=== PATIENT | female | born 1955 | race Caucasian/White ===

== ENCOUNTER → 2020-04-17 09:04 | Outpatient (BNVA) | payer MEDICARE, OTHER, SELFPAY | PROVIDERS: Referring Provider Internal Medicine Hematology & Oncology; Visit Provider Licensed Practical Nurse | DX: G35 Multiple sclerosis (principal); R19.7 Diarrhea, unspecified; E55.9 Vitamin D deficiency, unspecified ==

== ENCOUNTER 2020-04-17 11:08 | Outpatient (CLI) | payer MEDICARE, OTHER, SELFPAY ==
[2020-04-17 11:46] LABS: Basophils % 0.6 %; Eosinophils # 0.1 10^3/uL (0.0-0.8); Eosinophils % 2.1 %; Hematocrit 40.1 % (37.0-47.0); Hemoglobin 12.6 g/dL (11.5-15.3); Lymphocytes # 2.4 10^3/uL (0.8-4.8); Lymphocytes % 35.3 %; Mean Corpuscular HGB Conc 31.4 g/dL (30.0-36.0); Mean Corpuscular Hemoglobin 27.6 pg (28.0-34.0); Mean Corpuscular Volume 87.9 fL (81-99); Mean Platelet Volume 10.5 fL (7.4-10.4); Monocytes # 0.5 10^3/uL (0.2-0.9); Monocytes % 7.7 %; Neutrophils # 3.66 10^3/uL (1.8-7.7); Nucleated Red Blood Cells % 0 %; Platelet Count 308 10^3/cmm (130-400); Red Blood Count 4.56 10^6/uL (4.1-5.3); Red Cell Distribution Width 13.3 % (12.1-15.1); White Blood Count 6.8 10^3/uL (4.0-10.0)
[2020-04-17 12:09] LABS: Alanine Aminotransferase 29 U/L (0-33); Albumin Level 4.4 g/dL (3.5-5.2); Alkaline Phosphatase 122 IU/L (35-105); Anion Gap 15.6 (5-19); Aspartate Amino Transferase 29 U/L (0-32); Blood Urea Nitrogen 11 mg/dL (8-23); Calcium 9.7 mg/dL (8.5-10.5); Carbon Dioxide 24 mmol/L (22-29); Chloride 104 mmol/L (98-107); Globulin 3.4 g/dL (1.3-4.6); Glomerular Filtration Rate 83.7 mL/min (90-130); Glucose 90 mg/dL (65-115); Osmolality Calculated 286 mOsm/kg (285-295); Potassium 3.6 mmol/L (3.5-5.1); Sodium 140 mmol/L (136-145); Total Bilirubin 0.3 mg/dL (0.15-1.2); Total Protein 7.8 g/dL (6.6-8.7)
[2020-04-17 12:46] LABS: Erythrocyte Sedimentation Rate 34 mm/hr (0-15)
[2020-04-17 13:04] LABS: C Reactive Protein 10.3 mg/L (0.0-4.9)
[2020-04-17 13:20] LABS: Vitamin B12 312 pg/mL (232-1245)
[2020-04-19 14:31] LABS: Anti-Nuclear Antibody Screen NEGATIVE (NEGATIVE)
== END 2020-04-17 11:09 | disposition home or self-care (01) ==
LOC: LAB 11:14
PROVIDERS: PCP Licensed Practical Nurse; Visit Provider Licensed Practical Nurse
DX: G35 Multiple sclerosis (principal)
CPT/HCPCS: 80053; 82607; 83516; 85025; 85651; 86038; 86140; 86431; 99204

== ENCOUNTER 2020-05-01 12:17 | Outpatient (CLI) | payer MEDICARE, OTHER, SELFPAY ==
--- NOTE | 2020-05-01 13:00 | MR_ITS ---
WS: [id number] MRI HEAD WITH CONTRAST TECHNIQUE: Sagittal T1, T2 axial, T2 axial FLAIR, axial susceptibility weighted imaging, axial diffus ion weighted images, and coronal T2 images were obtained. Pre and post-T1 axial and post T1 coronal i mages. ADC and FSPGR images. CLINICAL INFORMATION: Multiple Sclerosis COMPARISON: March 30, 2020, FINDINGS: No evidence of restricted diffusion to suggest acute ischemia. Advanced patchy supra and infratentori al white matter changes unchanged since the recent examination. Corpus callosum appears normal. No si gnificant atrophy of the corpus callosum. No significant T1 hypointense lesion load. No abnormal gado linium enhancement. No abnormal enhancing lesions. Mild parenchymal volume loss. No hemosiderin on alvarado sceptibly weighted images. No abnormal gadolinium enhancement. Normal optic chiasm and pituitary infundibulum. Normal dural veno us sinuses. Normal optic chiasm and pituitary infundibulum. Cavernous sinuses and Meckel's cave are n ormal in appearance. MR/MR head wo/w con [id number] IMPRESSION: 1. No evidence of restricted diffusion to suggest acute ischemia. 2. Advanced supra and infratentorial white matter changes mainly in a perivent ricular and subcortical distribution unchanged 3. Corpus callosum is normal in appearance. No significant corpus callosal atr ophy. 4. No abnormal gadolinium enhancement. No enhancing demyelinating lesions. 5. No hemosiderin on susceptibly weighted images. 6. Postoperative changes partially visualized in the upper cervical spine.
--- NOTE | 2020-05-01 13:45 | MR_ITS ---
WS: [id number] MRI CERVICAL SPINE NONCONTRAST AND CONTRAST TECHNIQUE: Sagittal T1, T2 and STIR imaging. Axial T2, gradient, and fiesta imaging. Post gadolinium imaging obtained CLINICAL INFORMATION: MS COMPARISON: FINDINGS: Straightening of the normal cervical lordosis. Prior extensive cervical fusion C3-C6 with anterior ce rvical fusion and interbody fusion. Disc space narrowing worse at C6-C7. No high-grade central canal stenosis. Cord signal is normal. No demyelinating lesions in the cervical cord. No significant cord atrophy. Cord signal appears normal. No enhancing lesions in the cervical cord. C2-C3: Tiny central protrusion. Spinal canal and foramen are patent. C3-C4: Anterior cervical fusion with interbody fusion. Mild to moderate bilateral bony foraminal narr owing. Mild facet arthropathy. Mild central canal stenosis. C4-C5: Anterior interbody cervical fusion. Spinal canal is patent. Mild bilateral bony foraminal narr owing. C5-C6: Anterior interbody cervical fusion. Mild to moderate left and mild right bony foraminal narrow ing. Moderate right facet arthropathy. Mild central canal stenosis. C6-C7: Disc osteophytic ridging. Moderate to severe right and moderate left bony foraminal narrowing. Mild central canal stenosis. C7-T1: Normal. Visualized brain stem structures: Normal. Prevertebral soft tissues: Normal. MR/MR cervical spine wo/w [id number] IMPRESSION: 1. Straightening of the normal cervical lordosis with prior ACDF C3-C6. 2. Cord signal is normal. No demyelinating lesions in the cervical cord. No en hancing lesions. 3. No significant cord atrophy. 4. Mild central canal stenosis described above. 5. Moderate to severe bony foraminal narrowing worse at right C6-7.
== END 2020-05-01 12:18 | disposition home or self-care (01) ==
LOC: RADWPI 12:25
PROVIDERS: Family Provider Internal Medicine; PCP Internal Medicine; Visit Provider Licensed Practical Nurse
DX: G35 Multiple sclerosis (principal); Z98.1 Arthrodesis status
CPT/HCPCS: 70553; 72156; A9579

== ENCOUNTER → 2020-07-19 14:33 | Outpatient (BNVA) | payer MEDICARE, OTHER, SELFPAY | PROVIDERS: Family Provider Internal Medicine; PCP Internal Medicine; Referring Provider Licensed Practical Nurse; Visit Provider Specialist | DX: G37.9 Demyelinating disease of central nervous system, unspecified (principal); Z91.419 Personal history of unspecified adult abuse | CPT/HCPCS: 99215 ==